=== PATIENT | male | born 1990 | race Caucasian/White ===

== ENCOUNTER 2017-09-07 19:45 | Emergency (ER) | payer OTHER ==
[~2017-09-07] VITALS: Ht 182.9 cm; Wt 83.7 kg
[2017-09-07 20:12] VITALS: TEMP 37.2; Ht 182.9 cm; Wt 83.7 kg
[2017-09-07 21:45] LABS: BASO % 0.3 %; BASO ABS # 0.03 K/uL (0-0.2); COMPLETE YES; EOS % 1.1 %; HEMATOCRIT 47.1 % (42-52); IG% 0.3 %; LYMPH ABS # 3.48 K/uL (1.2-3.4); MEAN CORPUSCULAR HGB CONC 34.8 g/dl (32-36); MEAN PLATELET VOLUME 8.9 fL (7.4-10.4); MONO % 5.9 %; NEUT % 59.4 %; PLATELET COUNT 254 K/uL (130-400); RED BLOOD COUNT 5.29 M/uL (4.7-6.1); WHITE BLOOD COUNT 10.54 K/uL (4.8-10.8)
[2017-09-07] MEDS ORDERED: BUPR1SUB23 SL (21:51)
[2017-09-07 21:54] LABS: URINE APPEARANCE CLOUDY (CLEAR); URINE COLOR DK YELLOW; URINE NITRITE NEG (NEG); URINE SPECIFIC GRAVITY 1.036 (1.000-1.030); UROBILINOGEN NEG (NEG); ZZUR CULT IF INDIC CLEAN CATCH NO
[2017-09-07 21:57] LABS: ALT/SGPT 104 U/L (12-78); BLOOD UREA NITROGEN 8 mg/dl (7-18); BUN/CREATININE RATIO 9.2 (10-20); CALCIUM 9.3 mg/dl (8.5-10.1); CARBON DIOXIDE 29 mmol/L (21-32); CHLORIDE 104 mmol/L (98-107); CREATININE 0.88 mg/dl (0.60-1.40); GLUCOSE 55 mg/dl (70-99)
--- NOTE | 2017-09-07 21:57 | DIAGNOSTIC IMAGING REPORT ---
ABD/PELVIS WITHOUT FOR STONE CLINICAL HISTORY: 26 years-old Male presenting with abdominal pain, eval for stone. TECHNIQUE: Multidetector CT of the abdomen and pelvis was performed without the use of intravenous contrast. IV contrast: None. A dose lowering technique was used consistent with the principles of ALARA (as low as reasonably achievable). COMPARISON: None. CT DOSE (mGy.cm): The estimated cumulative dose is 307.98 mGy.cm. FINDINGS: Door Patcher topogram: Unremarkable. Lung bases: Lung bases clear. Normal heart size. No pericardial or pleural effusion. Liver: Normal morphology. Normal density. Biliary: No gross biliary ductal dilatation allowing for noncontrast technique. Gallbladder decompressed. Pancreas: Normal noncontrast appearance. Spleen: Normal noncontrast appearance. Adrenal glands: Normal noncontrast appearance. Kidneys and ureters: Normal noncontrast appearance. No hydronephrosis. No hydroureter. Multiple pelvic phleboliths. Bladder: Incompletely evaluated secondary to underdistention. Pelvic organs: Normal noncontrast appearance. Bowel: Normal. No bowel obstruction. An appendicolith may be present. Peritoneal cavity: No free fluid or intraperitoneal gas. Lymph nodes: No gross lymphadenopathy allowing for noncontrast technique. Vasculature: Normal noncontrast appearance. Abdominal wall: Normal. Musculoskeletal: Multiple bone islands noted in the pelvis and proximal femurs. IMPRESSION: 1. No nephrolithiasis. No hydronephrosis. 2. Allowing for noncontrast technique, no evidence of acute intra-abdominal pathology. Electronically signed by: Jacob Lai M.D. 09/07/2017 9:55 PM Dictated Date/Time: 09/07/2017 9:48 PM
[2017-09-07 22:00] LABS: SODIUM 141 mmol/L (136-145)
[2017-09-07] MEDS ORDERED: LIDOCAINE HCL 2% VISC SOLN 20 ML UDC PO STA (22:03)
[2017-09-07] MEDS ORDERED: ALUMINUM/MAGNESIUM SUSP 30 ML UDC PO STA (22:03)
[2017-09-07 22:06] LABS: ALKALINE PHOSPHATASE 132 U/L (45-117); AST/SGOT 47 U/L (15-37)
[2017-09-07 22:11] LABS: MANUAL MICROSCOPIC REQUIRED? NO; REVIEW REQ? YES
[2017-09-07 22:12] LABS: URINE BILIRUBIN NEG (NEG)
[2017-09-07 23:02] VITALS: BP 124/58; PULSE 57; O2SAT 96
--- NOTE | 2017-09-08 01:05 | EMERGENCY ROOM VISIT NOTE ---
History Report prepared by Mariama: Cady Man Under the Supervision of: Dr. Vahid Mcneill M.D. First contact with patient: 21:13 Chief Complaint: ABDOMINAL PAIN Stated Complaint: UNIDENTIFIED ABDOMINAL PAIN Nursing Triage Summary: See triage note History of Present Illness The patient is a 26 year old male who presents to the Emergency Room with complaints of intermittent abdominal pain starting a month ago. The patient describes the pain as a stabbing pain. He states that it is worse when he rides his motorcycle. He states that the episodes have been coming more frequently. The patient denies fever, vomiting, urinary symptoms, diarrhea, melena, and hematochezia. He states that eating does not appear to affect the pain. The patient denies drinking alcohol. He notes that it does not radiate into his back. He currently rates his pain as 4/10 in severity. He notes that he has had a kidney stone in the past, but this does not feel the same. Source of History: patient Onset: a month ago Position: abdomen Symptom Intensity: 4/10 Quality: stabbing Timing: intermittent Modifying Factors (Worsening): other (riding his motorcycle) Associated Symptoms: No fevers, No chest pain, No SOB, No vomiting, No back pain, No melena, No hematochezia, No diarrhea, No urinary symptoms Note: The patient denies drinking alcohol. Review of Systems See HPI for pertinent positives & negatives. A total of 10 systems reviewed and were otherwise negative. Past Medical & Surgical Medical Problems: (1) No Known Active Medical Problems Family History Patient reports no known family medical history. Social History Smoking Status: Current Every Day Smoker Alcohol Use: none Marital Status: Housing Status: lives with significant other Occupation Status: employed Current/Historical Medications Scheduled Buprenorphine Hcl-Naloxone Hcl (Suboxone 8-2 Mg), 1 UNIT SL BID Allergies Coded Allergies: No Known Allergies (Unverified , 09/07/17) Physical Exam Vital Signs Date Time Temp Pulse Resp B/P (MAP) Pulse Ox O2 Delivery O2 Flow Rate FiO2 09/07/17 23:02 57 16 124/58 96 09/07/17 20:12 37.2 74 16 123/69 97 Room Air Physical Exam Constitutional: Vital signs reviewed. Eyes: Pupils are equal round reactive to light. Conjunctiva are noninjected. ENT: Pharynx is clear without erythema or exudate. Mucous membranes are moist. Neck supple without meningeal signs. Respiratory: Clear to auscultation bilaterally. Breath sounds are equal bilaterally. Cardiovascular: Regular rate and rhythm. No rubs or gallops. GI: Soft and nondistended. Mild left upper quadrant tenderness. No guarding. Bowel sounds are present. Musculoskeletal: No peripheral edema. No CVA tenderness. Integumentary: No cyanosis. Neurological: The patient is awake and alert. No focal deficits. Psychiatric: Normal affect. Medical Decision & Procedures ER Provider Diagnostic Interpretation: Radiology results as stated below per my review and the radiologist's interpretation: ABD/PELVIS WITHOUT FOR STONE CLINICAL HISTORY: 26 years-old Male presenting with abdominal pain, eval for stone. TECHNIQUE: Multidetector CT of the abdomen and pelvis was performed without the use of intravenous contrast. IV contrast: None. A dose lowering technique was used consistent with the principles of ALARA (as low as reasonably achievable). COMPARISON: None. CT DOSE (mGy.cm): The estimated cumulative dose is 307.98 mGy.cm. FINDINGS: Psychologist Social topogram: Unremarkable. Lung bases: Lung bases clear. Normal heart size. No pericardial or pleural effusion. Liver: Normal morphology. Normal density. Biliary: No gross biliary ductal dilatation allowing for noncontrast technique. Gallbladder decompressed. Pancreas: Normal noncontrast appearance. Spleen: Normal noncontrast appearance. Adrenal glands: Normal noncontrast appearance. Kidneys and ureters: Normal noncontrast appearance. No hydronephrosis. No hydroureter. Multiple pelvic phleboliths. Bladder: Incompletely evaluated secondary to underdistention. Pelvic organs: Normal noncontrast appearance. Bowel: Normal. No bowel obstruction. An appendicolith may be present. Peritoneal cavity: No free fluid or intraperitoneal gas. Lymph nodes: No gross lymphadenopathy allowing for noncontrast technique. Vasculature: Normal noncontrast appearance. Abdominal wall: Normal. Musculoskeletal: Multiple bone islands noted in the pelvis and proximal femurs. IMPRESSION: 1. No nephrolithiasis. No hydronephrosis. 2. Allowing for noncontrast technique, no evidence of acute intra-abdominal pathology. Electronically signed by: Jacob Lai M.D. 09/07/2017 9:55 PM Dictated Date/Time: 09/07/2017 9:48 PM Laboratory Results 09/07/17 21:19 Red Blood Count 5.29, Mean Corpuscular Volume 89.0, Mean Corpuscular Hemoglobin 31.0, Mean Corpuscular Hemoglobin Concent 34.8, Mean Platelet Volume 8.9, Neutrophils (%) (Auto) 59.4, Lymphocytes (%) (Auto) 33.0, Monocytes (%) (Auto) 5.9, Eosinophils (%) (Auto) 1.1, Basophils (%) (Auto) 0.3, Neutrophils # (Auto) 6.26, Lymphocytes # (Auto) 3.48, Monocytes # (Auto) 0.62, Eosinophils # (Auto) 0.12, Basophils # (Auto) 0.03 09/07/17 21:19 Test 09/07/17 21:19 09/07/17 21:33 09/07/17 22:43 White Blood Count 10.54 K/uL (4.8-10.8) Red Blood Count 5.29 M/uL (4.7-6.1) Hemoglobin 16.4 g/dL (14.0-18.0) Hematocrit 47.1 % (42-52) Mean Corpuscular Volume 89.0 fL (80-100) Mean Corpuscular Hemoglobin 31.0 pg (25-34) Mean Corpuscular Hemoglobin Concent 34.8 g/dl (32-36) Platelet Count 254 K/uL (130-400) Mean Platelet Volume 8.9 fL (7.4-10.4) Neutrophils (%) (Auto) 59.4 % Lymphocytes (%) (Auto) 33.0 % Monocytes (%) (Auto) 5.9 % Eosinophils (%) (Auto) 1.1 % Basophils (%) (Auto) 0.3 % Neutrophils # (Auto) 6.26 K/uL (1.4-6.5) Lymphocytes # (Auto) 3.48 K/uL (1.2-3.4) Monocytes # (Auto) 0.62 K/uL (0.11-0.59) Eosinophils # (Auto) 0.12 K/uL (0-0.5) Basophils # (Auto) 0.03 K/uL (0-0.2) RDW Standard Deviation 42.9 fL (36.4-46.3) RDW Coefficient of Variation 13.2 % (11.5-14.5) Immature Granulocyte % (Auto) 0.3 % Immature Granulocyte # (Auto) 0.03 K/uL (0.00-0.02) Anion Gap 8.0 mmol/L (3-11) Est Creatinine Clear Calc Drug Dose 138.4 ml/min Estimated GFR () 136.4 Estimated GFR (Non- 117.7 BUN/Creatinine Ratio 9.2 (10-20) Calcium Level 9.3 mg/dl (8.5-10.1) Total Bilirubin 0.6 mg/dl (0.2-1) Aspartate Amino Transf (AST/SGOT) 47 U/L (15-37) Alanine Aminotransferase (ALT/SGPT) 104 U/L (12-78) Alkaline Phosphatase 132 U/L (45-117) Total Protein 9.3 gm/dl (6.4-8.2) Albumin 4.6 gm/dl (3.4-5.0) Globulin 4.7 gm/dl (2.5-4.0) Albumin/Globulin Ratio 1.0 (0.9-2) Lipase 140 U/L (73-393) Urine Color DK YELLOW Urine Appearance CLOUDY (CLEAR) Urine pH 5.0 (4.5-7.5) Urine Specific [place] 1.036 (1.000-1.030) Urine Protein NEG (NEG) Urine Glucose (UA) NEG (NEG) Urine Ketones NEG (NEG) Urine Occult Blood NEG (NEG) Urine Nitrite NEG (NEG) Urine Bilirubin NEG (NEG) Urine Urobilinogen NEG (NEG) Urine Leukocyte Esterase NEG (NEG) Urine WBC (Auto) 1-5 /hpf (0-5) Urine RBC (Auto) 0-4 /hpf (0-4) Urine Hyaline Casts (Auto) 1-5 /lpf (0-5) Urine Epithelial Cells (Auto) 5-10 /lpf (0-5) Urine Bacteria (Auto) NEG (NEG) Urine Crystals CALCIUM OXALATE (NONE Bedside Glucose 90 mg/dl (70-99) Laboratory results as reviewed by me. Medications Administered Medications (Trade) Dose Ordered Sig/Ananth Route Start Time Stop Time Status Last Admin Dose Admin Lidocaine HCl (Viscous Lidocaine 2% Soln) 10 ml NOW STAT PO 09/07/17 22:03 09/07/17 22:04 DC 10/8/17 22:03 10 ML Al Hydroxide/Mg Hydroxide (Maalox Susp) 30 ml NOW STAT PO 09/07/17 22:03 09/07/17 22:04 DC 09/07/17 22:03 30 ML ED Course 2131: The patient was evaluated in room A2. A complete history and physical exam was performed. 2202: Ordered Lidocaine HCl 10 ml PO, Maalox Susp 30 ml PO. 2229: I reevaluated the patient and he is doing well. 2245: Upon reevaluation, the patient appeared to have improvement of his symptoms. His blood sugar is at 90. I discussed tonight's findings with him. He verbalized agreement of the treatment plan. The patient was discharged home. Medical Decision This is a 26-year-old male who presents with left-sided abdominal pain. Differential diagnosis includes peptic ulcer disease, gastritis, mass, kidney stone, pancreatitis. I did perform a limited focused review of portions of the patient's old chart on the electronic medical record. The patient has had no recent pertinent visits to this hospital. The patient is normotensive. I did evaluate the patient as noted above. Patient is presenting with intermittent left-sided abdominal pain for the past month. He states over the past week has been getting worse. He states he doesn't recognize any inciting factors although he has noticed that riding his motorcycle has made it worse in the past. He has some mild tenderness in the left upper quadrant but otherwise and unremarkable exam. IV access was established. I did order and personally review the patient's urinalysis as described above. He does have calcium oxalate crystals but no blood. I did order and review the patient's blood work as noted in the electronic medical record. His LFTs are mildly elevated. The cause of this is unclear. His glucose is measured as 55. He is not diabetic. He has no symptoms consistent with hypoglycemia. A bedside blood sugar was obtained and was 90. I did order a CT of the abdomen and pelvis. I did review the images myself as well as the radiology report as described above. There is no evidence of acute process. The patient was treated with a GI cocktail. I did discuss the test results with the patient. I did discuss signs of hypoglycemia to watch out for with him. It is possible that this was simply a lab error. He was advised follow closely with a regular physician. He is in the process of obtaining one. He was told to have his LFTs rechecked as well. He was discharged in good condition and will take [id number] H1 blockers as needed. Impression Primary Impression: LUQ abdominal pain Additional Impressions: Abnormal LFTs Hypoglycemia Scribe Attestation The scribe's documentation has been prepared under my direct and personally reviewed by me in its entirety. I confirm that the note above accurately reflects all work, treatment, procedures, and medical decision making performed by me. Departure Information Dispostion Home / Self-Care Referrals No Doctor, Assigned (PCP) Forms HOME CARE DOCUMENTATION FORM, IMPORTANT VISIT INFORMATION Patient Instructions My [facility] Additional Instructions You have been examined and treated today on an emergency basis only. This is not a substitute for, or an effort to provide, complete comprehensive medical care. It is impossible to recognize and treat all injuries or illnesses in a single emergency department visit. It is therefore important that you follow up closely with a regular physician. Call as soon as possible for an appointment. Have your doctor recheck your liver tests which were slightly abnormal today. Return for worsening symptoms or if you develop fever, vomiting, dizziness, lightheadedness, black or tarry stools or any other concerning symptoms. Problem Qualifiers
== END 2017-09-07 23:03 | disposition home or self-care (01) ==
LOC: C.EDB 19:47 → C.EDA 23:03
DX: R10.12 Left upper quadrant pain (principal); R94.5 Abnormal results of liver function studies; E16.2 Hypoglycemia, unspecified; Z87.442 Personal history of urinary calculi; F17.210 Nicotine dependence, cigarettes, uncomplicated; Z79.899 Other long term (current) drug therapy